=== PATIENT | female | born 1980 | race Hispanic/Latino ===

== ENCOUNTER 2017-12-13 07:15 | Observation (INO) | payer MEDICAID ==
[2017-12-12 12:09] LABS: BASOPHILS % (AUTO) 0.7 % (0.0-5.0); EOSINOPHILS % (AUTO) 1.3 % (0.0-8.0); HEMATOCRIT 33.6 % (36-48); LYMPHOCYTES % (AUTO) 31.7 % (21.0-51.0); MEAN CORPUSCULAR HEMOGLOBIN 30.4 pg (27.0-33.0); MEAN CORPUSCULAR HGB CONC 34.7 g/dL (32.0-36.0); MEAN CORPUSCULAR VOLUME 87.8 fL (79-99); MONOCYTES % (AUTO) 6.1 % (3.0-13.0); NEUTROPHILS % (AUTO) 60.2 % (40.0-77.0); NUCLEATED RED BLOOD CELLS 0.1 % (0.0-0.19); PLATELET COUNT (AUTO) 352 K/uL (130-400); RED BLOOD CELL COUNT(AUTO) 3.82 MIL/uL (4.00-5.50); RED CELL DISTRIBUTION WIDTH 15.4 % (11.0-15.5); WHITE BLOOD COUNT (AUTO) 6.7 K/uL (4.8-10.8)
[2017-12-12 12:21] VITALS: BP 108/66
[2017-12-13] VITALS (24 sets, daily range): BP systolic 106–134; BP diastolic 67–87
[~2017-12-13] VITALS: Ht 160 cm; Wt 71.5 kg
[2017-12-13] MEDS: CEFAZOLIN SODIUM 1 GM VIAL IVP SCH ×2 (06:00→09:10)
[~2017-12-13 07:15] MED LIST: FERR325T22 PO; FLUO40CA7 PO; GABA-531 PO; LACTATED RINGERS 1000ML 1,000 ML IV SCH; LAMO200T PO; OMEP40CA37 PO; TRAZ300T2 PO
[2017-12-13] MEDS ORDERED: LIDOCAINE PF 2% 5ML ABBOJECT ONE (08:24)
[2017-12-13] MEDS ORDERED: GLYCOPYRROLATE 0.2 MG/ML 5 ML VIAL ONE (08:24)
[2017-12-13] MEDS ORDERED: DEXAMETHASONE SOD PHOSPHATE 10MG/ML 1ML VIAL ONE (08:24)
[2017-12-13] MEDS ORDERED: MIDAZOLAM HCL 1 MG/ML 2ML VIAL ONE (08:24)
[2017-12-13] MEDS ORDERED: ONDANSETRON HCL 4 MG/2 ML VIAL ONE ×2 (08:24→12:00)
[2017-12-13] MEDS ORDERED: PROPOFOL 10 MG/ML 20ML VIAL IV ONE (08:24)
[2017-12-13] MEDS ORDERED: FENTANYL CITRATE PF 50 MCG/1 ML 2ML VIAL ONE ×2 (08:25→09:53)
[2017-12-13] MEDS ORDERED: ROCURONIUM BROMIDE 10MG/1ML 5ML VL ONE (08:36)
[2017-12-13] MEDS ORDERED: NEOSTIGMINE 5MG/5ML SYR IV ONE (10:53)
[2017-12-13] MEDS ORDERED: MEPERIDINE-PF 25 MG/ML SYG ONE ×2 (11:25→11:35)
[2017-12-13] MEDS ORDERED: IBUPROFEN 600 MG TABLET PO PRN (13:00)
[2017-12-13] MEDS ORDERED: ACETAMINOPHEN-CODEINE 300/30MG TAB PO PRN (13:00)
[2017-12-13] MEDS ORDERED: PROMETHAZINE HCL 25 MG/ML 1ML AMPULE IM PRN (13:00)
[2017-12-13] MEDS ORDERED: BISACODYL 10 MG SUPP.RECT RC PRN (13:00)
[2017-12-13] MEDS: PROMETHAZINE HCL 25 MG/ML 1ML AMPULE IM PRN ×3 (13:34→21:06)
[2017-12-13] MEDS: MEPERIDINE-PF 75 MG/ML SYG IM PRN ×3 (13:34→21:07)
[2017-12-13] MEDS: DEXTROSE 5 %-0.45 % NACL 1,000 ML IV PRN (18:38)
[2017-12-13] MEDS: SIMETHICONE 80 MG TAB.CHEW PO PRN (21:05)
[2017-12-13] MEDS: DOCUSATE SODIUM 100 MG CAP PO PRN (21:05)
[2017-12-14] MEDS: DEXTROSE 5 %-0.45 % NACL 1,000 ML IV PRN (00:47)
[2017-12-14 03:00] VITALS: BP 116/76
[2017-12-14 05:31] LABS: HEMATOCRIT 31.4 % (36-48); MEAN CORPUSCULAR HEMOGLOBIN 30.9 pg (27.0-33.0); MEAN CORPUSCULAR HGB CONC 35.3 g/dL (32.0-36.0); MEAN CORPUSCULAR VOLUME 87.4 fL (79-99); NUCLEATED RED BLOOD CELLS 0.6 % (0.0-0.19); PLATELET COUNT (AUTO) 333 K/uL (130-400); RED BLOOD CELL COUNT(AUTO) 3.59 MIL/uL (4.00-5.50); RED CELL DISTRIBUTION WIDTH 15.7 % (11.0-15.5); WHITE BLOOD COUNT (AUTO) 11.2 K/uL (4.8-10.8)
[2017-12-14 08:03] VITALS: BP 121/75
[2017-12-14] MEDS ORDERED: HYDROCODONE/ACETAMINOPHEN 5/325 MG TAB PO PRN (08:30)
[2017-12-14] MEDS: DOCUSATE SODIUM 100 MG CAP PO PRN (08:57)
[2017-12-14] MEDS: SIMETHICONE 80 MG TAB.CHEW PO PRN (08:57)
[2017-12-14 11:22] VITALS: BP 107/64
[2017-12-14] MEDS ORDERED: FERROUS SULFATE 325 MG TABLET.DR PO SCH (12:00)
[2017-12-14] MEDS ORDERED: TRAZODONE HCL 100 MG TABLET PO SCH (21:00)
[2017-12-15] MEDS ORDERED: PANTOPRAZOLE SODIUM 40 MG TABLET.DR PO SCH (07:30)
[2017-12-15] MEDS ORDERED: FLUOXETINE HCL 20 MG CAPSULE PO SCH (09:00)
[2017-12-15] MEDS ORDERED: LAMOTRIGINE 25 MG TAB PO SCH (09:00)
[2017-12-15] MEDS ORDERED: GABAPENTIN 300 MG CAPSULE PO SCH (09:00)
== END 2017-12-14 13:30 | disposition home or self-care (01) ==
LOC: DAH 07:15 → WSH 07:16
PROVIDERS: ADMIT Obstetrics & Gynecology; ATTEND Obstetrics & Gynecology
DX: N92.1 Excessive and frequent menstruation with irregular cycle (principal); D50.0 Iron deficiency anemia secondary to blood loss (chronic); G89.29 Other chronic pain; M79.602 Pain in left arm; K66.8 Other specified disorders of peritoneum; N73.6 Female pelvic peritoneal adhesions (postinfective); N81.5 Vaginal enterocele; Z90.710 Acquired absence of both cervix and uterus; F31.9 Bipolar disorder, unspecified; Z98.51 Tubal ligation status; Z90.49 Acquired absence of other specified parts of digestive tract; Z87.891 Personal history of nicotine dependence
CPT/HCPCS: 36415 ×2; 58552; 85025; 85027; 86850; 86900; 86901; 88307; 96372; A4215; A4218; A4351; A4510; A4600; A4649 ×3; A4930; C1769 ×2; G0378 ×30; J0690; J1100; J2001; J2175 ×5; J2250; J2405 ×2; J2550 ×3; J2704; J2710; J3010 ×2; J3490 ×2; J7120 ×2